=== PATIENT | male | born 1960 | race Caucasian/White ===

== ENCOUNTER 2018-04-20 19:14 | Emergency (ER) | payer OTHER ==
[~2018-04-20] VITALS: Ht 191.8 cm; Wt 134.3 kg
[~2018-04-20 19:14] MED LIST: ASPIRIN81 MG PO; CLINDAMYCIN HC150 MG PO; ECONAZOLE NITRA15 GM TOP; LANTUS100 UNITS/ SC; LEVOFLOXACIN500 MG PO; NOVOLOG100 UNIT/1 SC; Z.0.JANUVIA50 MG; Z.0.TRILIPIX135 MG; Z.0.ZOCOR20 MG; ZESTRIL10 MG PO; [UNRECOGNIZED DRUG - OTHER]
[2018-04-20 19:53] LABS: BASOPHILS % 0.3 % (0.0-1.0); EOSINOPHILS # (AUTO) 0.5 (0.0-0.4); HEMATOCRIT 45.3 % (38.2-49.6); HEMOGLOBIN 15.2 g/dL (14.0-18.0); LYMPHOCYTES % 21.4 % (18.0-39.1); MEAN CORPUSCULAR HEMOGLOBIN 30.8 pg (28-32); MEAN CORPUSCULAR HGB CONC 33.6 g/dL (31-35); MEAN CORPUSCULAR VOLUME 91.9 fL (81-99); MONOCYTES # (AUTO) 0.8 (0.2-0.8); MONOCYTES % 8.6 % (4.4-11.3); NEUTROPHILS % 64.3 % (38.7-80.0); PLATELET COUNT 345 x10e3/uL (140-360); RED BLOOD COUNT 4.93 x10e6/uL (4.3-5.7); RED CELL DISTRIBUTION WIDTH 11.9 % (11.7-14.4)
[2018-04-20 20:12] LABS: ALANINE AMINOTRANSFERASE 27 IU/L (0-55); ALBUMIN/GLOBULIN RATIO 1.3 (0.8-2.0); ALKALINE PHOSPHATASE 55 IU/L (40-150); BLOOD UREA NITROGEN 14 mg/dL (7-26); BUN/CREATININE RATIO 17 (6-25); CALCIUM 9.2 mg/dL (8.4-10.2); CARBON DIOXIDE 24 mmol/L (22-29); CHLORIDE 99 mmol/L (98-107); CREATININE, SERUM 0.82 mg/dL (0.72-1.25); EST GLOMERULAR FILTRATION RATE > 60 ML/MIN (60-); GLUCOSE 112 mg/dL (74-118); SODIUM 135 mmol/L (136-145)
--- NOTE | 2018-04-20 20:16 | Diagnostic Imaging Report ---
Radiographs of the right foot - 3 views Radiographs of the right ankle 3 views HISTORY: Pain. Swelling. Osteomyelitis COMPARISON: None available. FINDINGS: Bones: No acute displaced fracture. Osseous alignment is within normal limits. Joints: Scattered degenerative change. Posterior and inferior calcaneal bone spurs. No osseous erosion. Soft tissues: Soft tissue swelling. Calcification of the plantar fascia. IMPRESSION: Scattered degenerative change. Posterior and inferior calcaneal bone spurs. No osseous erosion. Signed by: Dr. Gustavo Westfall M.D. on 04/20/2018 8:12 PM
[2018-04-20] MEDS ORDERED: KEFLEX500 MG PO (21:36)
[2018-04-20] MEDS ORDERED: CLINDAMYCIN PHOS 900MG/ 50ML 50 ML IV STA (22:41)
[2018-04-20 22:45] LABS: CLARITY,URINE CLEAR (CLEAR); COLOR,URINE YELLOW (YELLOW); LEUKOCYTE ESTERASE ,URINE NEGATIVE (NEGATIVE); NITRITE,URINE NEGATIVE (NEGATIVE); PROTEIN,URINE DIPSTICK NEGATIVE (NEGATIVE)
[2018-04-20 22:46] LABS: BILIRUBIN,URINE NEGATIVE (NEGATIVE); KETONES,URINE NEGATIVE (NEGATIVE); URINE UROBILINOGEN 0.2 mg/dL (0.2 - 1)
[2018-04-20 22:56] LABS: BACTERIA,URINE RARE /HPF; EPITHELIAL CELLS,URINE RARE /LPF; RBC,URINE 0-5 /HPF (0-5); WBC,URINE (MAN) 0-5 /HPF (0-5)
[2018-04-20] MEDS ORDERED: KETOROLAC TROMETHAMINE 30 MG/ML VIAL IV STA (23:20)
[2018-04-20] MEDS ORDERED: SODIUM CHLORIDE 0.9% 1000ML 1,000 ML IV ONE (23:30)
[2018-04-21 01:16] VITALS: BP 123/83
== END 2018-04-21 02:59 | disposition home or self-care (01) ==
LOC: ER 19:14
DX: L03.115 Cellulitis of right lower limb (principal)
CPT/HCPCS: 36415; 73610; 73630; 80053; 81001; 85025; 87086; 93971; 99284; J1885; J7030

== ENCOUNTER 2018-04-21 16:10 | Inpatient (IN) | payer OTHER ==
[~2018-04-21] VITALS: Ht 190.5 cm; Wt 131.7 kg
[2018-04-21] VITALS (12 sets, daily range): BP systolic 124–140; BP diastolic 74–92
[~2018-04-21 16:10] MED LIST changes: +KEFLEX500 MG PO
--- OUTSIDE RECORDS SUMMARY | 2018-04-21 16:14 | XMS REPORT ---
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 Allergies, Adverse Reactions, Alerts This patient has no known allergies or adverse reactions. Medications This patient has no known medications. Results Test Description Test Time Test Comments Text Results Atomic Results Result Comments FOOT RIGHT COMPLETE 2018-04-20 20:10:00 [facility] [address] [address] Patient Name: ALIREZA ZHANG MR #: [id number] : 1960 Age/Sex: 58/M Req #: [id number] [facility] Physician: Ordered by: LARRY MCCORMACK MD Report #: [id number] Location: ER Room/Bed: Procedure: [id number] DX/FOOT RIGHT COMPLETE Exam Date: 04/20/18 Exam Time: 1999 REPORT STATUS: Signed Radiographs of the right foot - 3 views Radiograph s of the right ankle 3 views HISTORY: Pain. Swelling. Osteomyelitis COMPARISON: None available. FINDINGS: Bones: No acute displaced fracture. Osseous alignment is within normal limits. Joints: Scattered degenerative change. Posterior and inferior calcaneal bone spurs. No osseous erosion. Soft tissues: Soft tissue swelling. Calcification of the plantar fascia. IMPRESSION: Scattered degenerative change. Posterior and inferior calcaneal bone spurs. No osseous erosion. Signed by: Dr. Gustavo Westfall M.D. on 04/20/2018 8:12 PM Dictated By: GUSTAVO WESTFALL MD, MD 11 Transcribed By: JOYCE on 04/20/182011 COPY TO: LARRY MCCORMACK MD ANKLE 3 + VIEWS RIGHT 2018-04-20 20:10:00 [address] [address] Patient Name: ALIREZA ZHANG MR #: [id number] : 1960 Age/Sex: 58/M Req #: [id number] Adm Physician: Ordered by: LARRY MCCORMACK MD Report #: [id number] Location: ER Room/Bed: Procedure: [id number] DX/ANKLE 3 + VIEWS RIGHT Exam Date: 04/20/18 Exam Time: 1999 REPORT STATUS: Signed Radiographs of the right foot - 3 views Radiograph s of the right ankle 3 views HISTORY: Pain. Swelling. Osteomyelitis COMPARISON: None available. FINDINGS: Bones: No acute displaced fracture. Osseous alignment is within normal limits. Joints: Scattered degenerative change. Posterior and inferior calcaneal bone spurs. No osseous erosion. Soft tissues: Soft tissue swelling. Calcification of the plantar fascia.
[2018-04-21] MEDS: HYDROCODONE/APAP 5MG-325MG TAB PO PRN (17:00)
[2018-04-21] MEDS: SODIUM CHLORIDE 0.9% 1000ML 1,000 ML IV SCH (17:21)
[2018-04-21] MEDS: PIPER-TAZ 3.375 GM 50 ML IV SCH (17:27)
[2018-04-21] MEDS: VANCOMYCIN 1GM/NS 250 ML 250 ML IV SCH (17:27)
[2018-04-21 17:54] LABS: BASOPHILS % 0.4 % (0.0-1.0); EOSINOPHILS # (AUTO) 0.4 (0.0-0.4); EOSINOPHILS % 4.8 % (0.0-6.0); HEMATOCRIT 42.1 % (38.2-49.6); HEMOGLOBIN 14.3 g/dL (14.0-18.0); LYMPHOCYTES # (AUTO) 1.6 (1.0-3.2); LYMPHOCYTES % 20.2 % (18.0-39.1); MEAN CORPUSCULAR VOLUME 91.1 fL (81-99); MONOCYTES # (AUTO) 0.7 (0.2-0.8); MONOCYTES % 8.5 % (4.4-11.3); NEUTROPHILS % 65.4 % (38.7-80.0); PLATELET COUNT 324 x10e3/uL (140-360); RED BLOOD COUNT 4.62 x10e6/uL (4.3-5.7); RED CELL DISTRIBUTION WIDTH 11.9 % (11.7-14.4)
[2018-04-21 18:12] LABS: ALANINE AMINOTRANSFERASE 25 IU/L (0-55); ALBUMIN 3.6 g/dL (3.5-5.0); ALBUMIN/GLOBULIN RATIO 1.2 (0.8-2.0); ALKALINE PHOSPHATASE 49 IU/L (40-150); ANION GAP 14.8 mmol/L (8-16); BLOOD UREA NITROGEN 13 mg/dL (7-26); BUN/CREATININE RATIO 16 (6-25); CALCIUM 8.7 mg/dL (8.4-10.2); CARBON DIOXIDE 23 mmol/L (22-29); CHLORIDE 100 mmol/L (98-107); CREATININE, SERUM 0.79 mg/dL (0.72-1.25); EST GLOMERULAR FILTRATION RATE > 60 ML/MIN (60-); GLUCOSE 138 mg/dL (74-118); POTASSIUM 3.8 mmol/L (3.5-5.1); SODIUM 134 mmol/L (136-145)
[2018-04-21 18:31] LABS: ERYTHROCYTE SEDIMENTATION RATE 13 mm/hr (0-13)
[2018-04-22] MEDS: PIPER-TAZ 3.375 GM 50 ML IV SCH ×4 (00:58→18:00)
[2018-04-22] MEDS: VANCOMYCIN 1GM/NS 250 ML 250 ML IV SCH ×2 (04:50→16:42)
[2018-04-22] MEDS: ENOXAPARIN SOD INJ 40 MG/0.4 ML SYR SC SCH (06:08)
[2018-04-22 07:00] VITALS: BP 120/76
[2018-04-22] MEDS: INSULIN LISPRO 100 UNIT/1 ML 3ML VIAL SQ SCH ×3 (08:18→16:41)
[2018-04-22] MEDS: LISINOPRIL 10 MG TAB PO SCH (08:19)
[2018-04-22] MEDS: ECONAZOLE NITRATE 1% CRM 15 GM TUBE TP SCH ×2 (08:19→17:06)
[2018-04-22] MEDS: ASPIRIN 81 MG CHEW TAB PO SCH (08:19)
[2018-04-22] MEDS: FLUCONAZOLE 100 MG TAB PO SCH (08:19)
[2018-04-22 09:00] VITALS: BP 138/78
[2018-04-22 11:00] VITALS: BP 142/90
[2018-04-22] MEDS: SODIUM CHLORIDE 0.9% 1000ML 1,000 ML IV SCH (12:30)
--- NOTE | 2018-04-22 14:08 | Consultation ---
DATE OF CONSULTATION: INFECTIOUS DISEASE CONSULTATION REASON FOR CONSULTATION: Cellulitis of the right leg. HISTORY OF PRESENT ILLNESS: This is a patient who is a very pleasant 58-year-old white male with history of diabetes mellitus, hypertension, hypercholesterolemia, obesity, history of infection back in 2004 or so in the right leg. Comes in with redness and swelling of his leg. The patient is thought to have problems on Wednesday. There was some pain. He went to see his physician, who gave him oral antibiotic, but the redness and the swelling continued to get worse. The pain was found to get worse. He went to the emergency room on Wednesday. In the emergency room they told him that he needed to be admitted, but the hospital was full and he did not want to stay in the emergency room; so, he went to see his physician on . By then it was a lot worse; so, the physician told him he needed to come into the hospital. So, patient is being admitted. The patient is currently lying in bed comfortably. PAST MEDICAL HISTORY: As above. PAST SURGICAL HISTORY: As above. ALLERGIES: NKA. SOCIAL HISTORY: There is no smoking, drug abuse, alcohol abuse. FAMILY HISTORY: Otherwise unremarkable. REVIEW OF SYSTEMS HEENT: Negative. NECK: Negative. PULMONARY: Negative. CARDIAC: Negative. : Negative. JOINTS: Negative. ALL: Within normal limits at the present time. He denies any complaints. PHYSICAL EXAMINATION GENERAL: He is currently alert, oriented, does not seem to be in acute distress. VITAL SIGNS: Stable. Currently afebrile. HEENT: He does not appear icteric. NECK: Supple. CHEST: Clear. HEART: S1 and S2. No S3 or S4, no murmur. ABDOMEN: Soft. Bowel sounds present. No tenderness. No hepatosplenomegaly. EXTREMITIES: The right leg: There is erythema. There is edema. There is a small bullous lesion noted on the medial aspect. LAB: White count 7.68, hemoglobin of 14.3. Sodium 134, potassium 3.8, creatinine 0.79. IMPRESSION: Cellulitis of the leg in a patient who is obese, failed oral antibiotic. Agree with vancomycin, agree with Zosyn. Await the blood cultures. Recheck CBC, recheck chemistry panel. Will see how he is going to do in the next couple of days. Discussed with the patient at length. Job#: [id number] EV
[2018-04-22 15:00] VITALS: BP 131/76
[2018-04-22] MEDS: HYDROCODONE/APAP 5MG-325MG TAB PO PRN (17:48)
[2018-04-22] MEDS ORDERED: ONDANSETRON HCL INJ 2 MG/ML VIAL IV PRN (19:45)
[2018-04-22] MEDS ORDERED: DOCUSATE SODIUM 100 MG CAP PO PRN (19:45)
[2018-04-22 20:00] VITALS: BP 147/97
[2018-04-22] MEDS: INSULIN DETEMIR 100 UNIT/ML PEN SQ SCH (21:00)
[2018-04-23] VITALS (8 sets, daily range): BP systolic 122–158; BP diastolic 55–99
[2018-04-23] MEDS: PIPER-TAZ 3.375 GM 50 ML IV SCH ×4 (00:19→18:08)
[2018-04-23] MEDS: VANCOMYCIN 1GM/NS 250 ML 250 ML IV SCH ×2 (04:45→16:45)
[2018-04-23] MEDS: ENOXAPARIN SOD INJ 40 MG/0.4 ML SYR SC SCH (06:28)
[2018-04-23] MEDS: INSULIN LISPRO 100 UNIT/1 ML 3ML VIAL SQ SCH ×3 (08:00→16:45)
[2018-04-23] MEDS: SODIUM CHLORIDE 0.9% 1000ML 1,000 ML IV SCH (08:45)
[2018-04-23] MEDS: FLUCONAZOLE 100 MG TAB PO SCH (09:30)
[2018-04-23] MEDS: LISINOPRIL 10 MG TAB PO SCH (09:30)
[2018-04-23] MEDS: ASPIRIN 81 MG CHEW TAB PO SCH (09:30)
[2018-04-23] MEDS: ECONAZOLE NITRATE 1% CRM 15 GM TUBE TP SCH ×2 (10:05→17:04)
[2018-04-23] MEDS ORDERED: ACETAMINOPHEN 325 MG TAB PO PRN (13:45)
[2018-04-23] MEDS: INSULIN DETEMIR 100 UNIT/ML PEN SQ SCH (20:28)
[2018-04-24] VITALS (8 sets, daily range): BP systolic 133–154; BP diastolic 74–89
[2018-04-24] MEDS: PIPER-TAZ 3.375 GM 50 ML IV SCH ×5 (00:07→23:31)
[2018-04-24] MEDS: SODIUM CHLORIDE 0.9% 1000ML 1,000 ML IV SCH ×2 (04:51→23:31)
[2018-04-24] MEDS: VANCOMYCIN 1GM/NS 250 ML 250 ML IV SCH ×2 (04:51→17:00)
[2018-04-24] MEDS: ENOXAPARIN SOD INJ 40 MG/0.4 ML SYR SC SCH (06:43)
[2018-04-24 07:00] LABS: BASOPHILS % 0.5 % (0.0-1.0); EOSINOPHILS # (AUTO) 0.4 (0.0-0.4); EOSINOPHILS % 6.5 % (0.0-6.0); HEMATOCRIT 41.9 % (38.2-49.6); LYMPHOCYTES # (AUTO) 2.1 (1.0-3.2); LYMPHOCYTES % 36.6 % (18.0-39.1); MEAN CORPUSCULAR HEMOGLOBIN 30.5 pg (28-32); MEAN CORPUSCULAR HGB CONC 33.4 g/dL (31-35); MEAN CORPUSCULAR VOLUME 91.3 fL (81-99); MONOCYTES # (AUTO) 0.5 (0.2-0.8); MONOCYTES % 8.9 % (4.4-11.3); NEUTROPHILS # (AUTO) 2.7 (2.1-6.9); NEUTROPHILS % 46.6 % (38.7-80.0); PLATELET COUNT 353 x10e3/uL (140-360); RED BLOOD COUNT 4.59 x10e6/uL (4.3-5.7); RED CELL DISTRIBUTION WIDTH 11.9 % (11.7-14.4)
[2018-04-24] MEDS: INSULIN LISPRO 100 UNIT/1 ML 3ML VIAL SQ SCH ×3 (07:30→17:05)
[2018-04-24] MEDS: ASPIRIN 81 MG CHEW TAB PO SCH (08:11)
[2018-04-24] MEDS: LISINOPRIL 10 MG TAB PO SCH (08:11)
[2018-04-24] MEDS: FLUCONAZOLE 100 MG TAB PO SCH (08:11)
[2018-04-24] MEDS: ECONAZOLE NITRATE 1% CRM 15 GM TUBE TP SCH ×2 (08:12→17:43)
[2018-04-24] MEDS: INSULIN DETEMIR 100 UNIT/ML PEN SQ SCH (21:14)
[2018-04-25] VITALS (8 sets, daily range): BP systolic 128–178; BP diastolic 73–95
[2018-04-25] MEDS: VANCOMYCIN 1GM/NS 250 ML 250 ML IV SCH (04:17)
[2018-04-25] MEDS: ENOXAPARIN SOD INJ 40 MG/0.4 ML SYR SC SCH (05:09)
[2018-04-25] MEDS: PIPER-TAZ 3.375 GM 50 ML IV SCH ×3 (06:25→18:29)
[2018-04-25] MEDS: INSULIN LISPRO 100 UNIT/1 ML 3ML VIAL SQ SCH ×3 (07:30→18:29)
[2018-04-25] MEDS: ASPIRIN 81 MG CHEW TAB PO SCH (09:48)
[2018-04-25] MEDS: ECONAZOLE NITRATE 1% CRM 15 GM TUBE TP SCH ×2 (09:48→18:29)
[2018-04-25] MEDS: LISINOPRIL 10 MG TAB PO SCH (09:48)
[2018-04-25] MEDS: FLUCONAZOLE 100 MG TAB PO SCH (09:48)
[2018-04-25] MEDS: VANCOMYCIN HCL 1.5 GM in SODIUM CHLORIDE 0.9% 250ML 300 ML IV SCH (18:29)
[2018-04-25 19:48] LABS: ANION GAP 15.7 mmol/L (8-16); BLOOD UREA NITROGEN 16 mg/dL (7-26); BUN/CREATININE RATIO 18 (6-25); CARBON DIOXIDE 22 mmol/L (22-29); CHLORIDE 103 mmol/L (98-107); CREATININE, SERUM 0.91 mg/dL (0.72-1.25); EST GLOMERULAR FILTRATION RATE > 60 ML/MIN (60-); GLUCOSE 145 mg/dL (74-118); POTASSIUM 3.7 mmol/L (3.5-5.1); SODIUM 137 mmol/L (136-145)
[2018-04-25 20:34] LABS: INR 0.86; PROTHROMBIN TIME 12.5 seconds (11.9-14.5)
[2018-04-25 20:35] LABS: PARTIAL THROMBOPLASTIN TIME 27.5 seconds (23.8-35.5)
[2018-04-25] MEDS: SODIUM CHLORIDE 0.9% 1000ML 1,000 ML IV SCH (20:45)
[2018-04-25] MEDS: INSULIN DETEMIR 100 UNIT/ML PEN SQ SCH (21:00)
--- NOTE | 2018-04-25 22:41 | Diagnostic Imaging Report ---
EXAMINATION: CHEST XRAY LINE PLACEMENT INDICATION: PICC line placement COMPARISON: None FINDINGS: AP view TUBES and LINES: Right upper extremity PICC tip overlies the SVC. LUNGS: Lungs are moderately inflated. Lungs are clear. There is no evidence of pneumonia or pulmonary edema. PLEURA: No pleural effusion or pneumothorax. HEART AND MEDIASTINUM: The cardiomediastinal silhouette is unremarkable. BONES AND SOFT TISSUES: No acute osseous lesion. Soft tissues are unremarkable. UPPER ABDOMEN: No free air under the diaphragm. IMPRESSION: Right upper extremity PICC tip overlies the SVC. No acute thoracic abnormality. Signed by: DR. Yordy Kay MD on 04/25/2018 10:37 PM
[2018-04-26 00:45] VITALS: BP 164/92
[2018-04-26] MEDS: PIPER-TAZ 3.375 GM 50 ML IV SCH ×3 (00:47→12:40)
[2018-04-26] MEDS: ENOXAPARIN SOD INJ 40 MG/0.4 ML SYR SC SCH (05:35)
[2018-04-26 06:20] VITALS: BP 145/92
[2018-04-26 08:35] VITALS: BP 137/86
[2018-04-26] MEDS: LISINOPRIL 10 MG TAB PO SCH (08:57)
[2018-04-26] MEDS: FLUCONAZOLE 100 MG TAB PO SCH (08:57)
[2018-04-26] MEDS: ASPIRIN 81 MG CHEW TAB PO SCH (08:57)
[2018-04-26] MEDS: VANCOMYCIN HCL 1.5 GM in SODIUM CHLORIDE 0.9% 250ML 300 ML IV SCH ×2 (09:00→17:04)
[2018-04-26] MEDS ORDERED: MUPIROCIN 2% OINT 22 GM TUBE TOP SCH (09:00)
[2018-04-26] MEDS: INSULIN LISPRO 100 UNIT/1 ML 3ML VIAL SQ SCH ×3 (09:00→17:07)
[2018-04-26] MEDS: ECONAZOLE NITRATE 1% CRM 15 GM TUBE TP SCH ×2 (10:00→17:05)
[2018-04-26 11:45] VITALS: BP 137/86
[2018-04-26 12:37] VITALS: BP 132/79
[2018-04-26 16:39] VITALS: BP 127/71
--- NOTE | 2018-05-28 01:02 | Discharge Summary ---
DISCHARGE DIAGNOSES 1. Right lower extremity cellulitis. 2. Type 2 diabetes mellitus with acceptable control. 3. Hypertension, controlled. HISTORY OF PRESENT ILLNESS: Mr. Dunaway is a 58-year-old gentleman patient of Dr. Earl who has had a chronic fungal infection of both feet and onychomycosis. He was treated for cellulitis in 2014. Now, he returns with similar symptoms for the last 10 days having failed outpatient antibiotic therapy. A venous Doppler was taken a few days prior to admission and was negative for DVT. He was admitted to the hospital. He was started on a combination of Zosyn and vancomycin and a consult was requested with the ID proposal consultant Dr. Rodriguez. Initially, at the time of admission, the patient had erythema around the distal right lower extremity. This unfortunately progressed to a shallow bulla that later on opened up and therefore needed local wound care. The fluid sent from the draining wound was negative for any growth. An arterial Doppler was performed to rule out any possibility of peripheral vascular disease. This was negative. A PICC line was inserted and the patient was then arranged to go home with home IV antibiotics and wound care through Dr. Rodriguez's office. NEGRO GILMORE MD Job#: [id number] [facility]
== END 2018-04-26 19:40 | disposition home or self-care (01) | DRG 603 ==
LOC: IMCU 16:10 → MED/SURG2 04-22 21:11
PROVIDERS: ADMIT Internal Medicine; ATTEND Internal Medicine
PROC: 02HV33Z Insertion of Infusion Device into Superior Vena Cava, Percutaneous Approach (ICD-10-PCS; principal; 2018-04-25)
DX: L03.115 Cellulitis of right lower limb (principal); E66.9 Obesity, unspecified; Z68.36 Body mass index [BMI] 36.0-36.9, adult; B35.1 Tinea unguium; B95.8 Unspecified staphylococcus as the cause of diseases classified elsewhere
CPT/HCPCS: 36415; 36569; 71045; 80048; 80053; 80202; 82948; 85025; 85610; 85651; 85730; 87071; 87186; 87205; 93926; 96361; J1650; J2405; J2543; J3370; J7030; J7050

== ENCOUNTER 2022-08-14 11:11 | Emergency (ER) | payer OTHER ==
[~2022-08-14] VITALS: Ht 193 cm; Wt 124.3 kg
[2022-08-14] MEDS ORDERED: HYDROCODONE/APAP 7.5MG-325MG 1 EA TAB PO STA (11:30)
[2022-08-14] MEDS ORDERED: ULTRAM 50MG50 MG PO (12:56)
== END 2022-08-14 13:16 | disposition home or self-care (01) ==
LOC: ER 11:18
DX: M25.561 Pain in right knee (principal); E11.9 Type 2 diabetes mellitus without complications; I10 Essential (primary) hypertension
CPT/HCPCS: 99284

== ENCOUNTER 2022-08-30 02:32 | Inpatient (IN) | payer OTHER ==
[2022-08-30] VITALS (8 sets, daily range): BP systolic 113–129; BP diastolic 69–77
[~2022-08-30] VITALS: Ht 198.1 cm; Wt 124.3 kg
[~2022-08-30 02:32] MED LIST changes: +ULTRAM 50MG50 MG PO
[2022-08-30] MEDS ORDERED: ACETAMINOPHEN 325 MG TAB PO ONE (02:45)
[2022-08-30] MEDS ORDERED: SODIUM CHLORIDE 0.9% 1000ML 1,000 ML IV ONE (02:45)
[2022-08-30 03:03] LABS: BASOPHILS % 0.4 % (0.0-1.0); EOSINOPHILS # (AUTO) 0.5 (0.0-0.4); EOSINOPHILS % 4.4 % (0.0-6.0); HEMATOCRIT 46.7 % (38.2-49.6); HEMOGLOBIN 15.5 g/dL (14.0-18.0); LYMPHOCYTES # (AUTO) 1.8 (1.0-3.2); LYMPHOCYTES % 16.7 % (18.0-39.1); MEAN CORPUSCULAR HEMOGLOBIN 31.1 pg (28-32); MEAN CORPUSCULAR HGB CONC 33.2 g/dL (31-35); MEAN CORPUSCULAR VOLUME 93.6 fL (81-99); MONOCYTES # (AUTO) 0.8 (0.2-0.8); NEUTROPHILS # (AUTO) 7.3 (2.1-6.9); NEUTROPHILS % 70.1 % (38.7-80.0); PLATELET COUNT 282 x10e3/uL (140-360); RED BLOOD COUNT 4.99 x10e6/uL (4.3-5.7); RED CELL DISTRIBUTION WIDTH 12.1 % (11.7-14.4)
[2022-08-30] MEDS ORDERED: PIPERACILLIN/TAZOBACTAM 3.375 GM VIAL ONE (03:11)
[2022-08-30 03:20] LABS: ALANINE AMINOTRANSFERASE 26 IU/L (0-55); ALBUMIN 4.1 g/dL (3.5-5.0); ALBUMIN/GLOBULIN RATIO 1.2 (0.8-2.0); ALKALINE PHOSPHATASE 51 IU/L (40-150); ANION GAP 16.8 mmol/L (8-16); BLOOD UREA NITROGEN 16 mg/dL (7-26); BUN/CREATININE RATIO 18 (6-25); CALCIUM 9.3 mg/dL (8.4-10.2); CARBON DIOXIDE 24 mmol/L (22-29); CHLORIDE 102 mmol/L (98-107); CREATINE KINASE 121 IU/L (30-200); CREATININE, SERUM 0.91 mg/dL (0.72-1.25); GLUCOSE 153 mg/dL (74-118); POTASSIUM 3.8 mmol/L (3.5-5.1); SODIUM 139 mmol/L (136-145)
[2022-08-30] MEDS ORDERED: DEXTROSE 50% SYRINGE 50 ML IV PRN (03:45)
[2022-08-30] MEDS ORDERED: ONDANSETRON HCL INJ 2MG/ML 2ML 2 MG/ML VIAL IV PRN (03:45)
[2022-08-30] MEDS ORDERED: ACETAMINOPHEN 325 MG TAB PO PRN (03:45)
[2022-08-30] MEDS: SODIUM CHLORIDE 0.9% 1000ML 1,000 ML IV SCH ×3 (04:30→20:07)
[2022-08-30] MEDS: Vancomycin IV 1 GM in SODIUM CHLORIDE 0.9% 250ML 250 ML IV SCH ×2 (04:30→14:43)
[2022-08-30] MEDS: INSULIN REGULAR, HUMAN 100 UNIT/1 ML SQ SCH ×4 (08:00→21:00)
[2022-08-30] MEDS ORDERED: METFORMIN HCL500 M1 PO (10:12)
[2022-08-30] MEDS ORDERED: LISINOPRIL10 MG PO (10:12)
[2022-08-30] MEDS ORDERED: JARDIANCE10 MG PO (10:12)
[2022-08-30] MEDS ORDERED: JANUVIA100 MG PO (10:12)
[2022-08-30] MEDS ORDERED: DOXYCYCLINE HY100 MG PO (10:12)
[2022-08-30] MEDS ORDERED: SIMVASTATIN40 MG PO (10:12)
[2022-08-30] MEDS: Morphine 4mg INJECTION 4 MG/ML INJ IV PRN ×2 (12:15→20:06)
[2022-08-31] VITALS (7 sets, daily range): BP systolic 117–133; BP diastolic 74–82
[2022-08-31] MEDS: Vancomycin IV 1 GM in SODIUM CHLORIDE 0.9% 250ML 250 ML IV SCH ×2 (03:08→15:57)
[2022-08-31] MEDS: SODIUM CHLORIDE 0.9% 1000ML 1,000 ML IV SCH ×2 (03:09→13:16)
[2022-08-31 06:10] LABS: BASOPHILS % 0.5 % (0.0-1.0); EOSINOPHILS # (AUTO) 0.4 (0.0-0.4); EOSINOPHILS % 5.4 % (0.0-6.0); HEMOGLOBIN 13.8 g/dL (14.0-18.0); LYMPHOCYTES # (AUTO) 1.6 (1.0-3.2); LYMPHOCYTES % 21.6 % (18.0-39.1); MEAN CORPUSCULAR HEMOGLOBIN 34.3 pg (28-32); MEAN CORPUSCULAR HGB CONC 35.4 g/dL (31-35); MONOCYTES # (AUTO) 0.7 (0.2-0.8); MONOCYTES % 9.1 % (4.4-11.3); NEUTROPHILS # (AUTO) 4.7 (2.1-6.9); NEUTROPHILS % 62.9 % (38.7-80.0); PLATELET COUNT 220 x10e3/uL (140-360); RED BLOOD COUNT 4.02 x10e6/uL (4.3-5.7); RED CELL DISTRIBUTION WIDTH 13.7 % (11.7-14.4)
[2022-08-31 06:34] LABS: ALBUMIN 3.4 g/dL (3.5-5.0); ALBUMIN/GLOBULIN RATIO 1.2 (0.8-2.0); ANION GAP 10.7 mmol/L (8-16); CALCIUM 8.6 mg/dL (8.4-10.2); CREATININE, SERUM 0.73 mg/dL (0.72-1.25); POTASSIUM 3.7 mmol/L (3.5-5.1)
[2022-08-31] MEDS: INSULIN REGULAR, HUMAN 100 UNIT/1 ML SQ SCH ×4 (07:30→20:10)
[2022-08-31] MEDS: Morphine 4mg INJECTION 4 MG/ML INJ IV PRN ×2 (13:21→20:12)
[2022-09-01] VITALS: BP 120/72
[2022-09-01] MEDS: Vancomycin IV 1 GM in SODIUM CHLORIDE 0.9% 250ML 250 ML IV SCH (02:40)
[2022-09-01] MEDS: Morphine 4mg INJECTION 4 MG/ML INJ IV PRN (03:15)
[2022-09-01 04:00] VITALS: BP 128/68
[2022-09-01 05:40] LABS: BASOPHILS % 0.7 % (0.0-1.0); EOSINOPHILS # (AUTO) 0.3 (0.0-0.4); EOSINOPHILS % 5.8 % (0.0-6.0); HEMATOCRIT 39.5 % (38.2-49.6); HEMOGLOBIN 13.7 g/dL (14.0-18.0); LYMPHOCYTES # (AUTO) 1.7 (1.0-3.2); LYMPHOCYTES % 29.4 % (18.0-39.1); MEAN CORPUSCULAR HEMOGLOBIN 33.2 pg (28-32); MEAN CORPUSCULAR HGB CONC 34.7 g/dL (31-35); MEAN CORPUSCULAR VOLUME 95.6 fL (81-99); MONOCYTES # (AUTO) 0.6 (0.2-0.8); MONOCYTES % 9.4 % (4.4-11.3); NEUTROPHILS # (AUTO) 3.2 (2.1-6.9); NEUTROPHILS % 53.8 % (38.7-80.0); PLATELET COUNT 237 x10e3/uL (140-360); RED BLOOD COUNT 4.13 x10e6/uL (4.3-5.7); RED CELL DISTRIBUTION WIDTH 12.5 % (11.7-14.4)
[2022-09-01 06:11] LABS: ANION GAP 12.8 mmol/L (8-16); CALCIUM 8.4 mg/dL (8.4-10.2); CREATININE, SERUM 0.68 mg/dL (0.72-1.25); POTASSIUM 3.8 mmol/L (3.5-5.1)
[2022-09-01] MEDS: INSULIN REGULAR, HUMAN 100 UNIT/1 ML SQ SCH ×2 (07:30→11:30)
[2022-09-01 08:24] VITALS: BP 122/87
[2022-09-01 08:50] VITALS: BP 122/87
[2022-09-01 12:02] VITALS: BP 124/79
[2022-09-01] MEDS ORDERED: DAPTOMYCIN500 MG IV (13:59)
[2022-09-01] MEDS ORDERED: ACETAMINOPHEN325 M1 PO (13:59)
[2022-09-01] MEDS ORDERED: CEFTRIAXON2 GM/50 ML IVP (13:59)
[2022-09-01] MEDS ORDERED: DAPTOMYCIN 500mg 10ML 500 MG in SODIUM CHLORIDE 0.9% 100 ML IV SCH (14:00)
[2022-09-01] MEDS ORDERED: ONDANSETRON HCL 4 MG ORAL DISINTEGRATING TAB PO PRN (14:45)
[2022-09-01] MEDS ORDERED: CEFTRIAXONE 2 GM in SODIUM CHLORIDE 0.9% 100 ML IV SCH (15:00)
== END 2022-09-01 17:45 | disposition home or self-care (01) | DRG 638 ==
LOC: ER 02:40 → ERHOLD 03:43 → MED/SURG3 06:52
PROVIDERS: ADMIT Internal Medicine; ATTEND Internal Medicine
PROC: 02HV33Z Insertion of Infusion Device into Superior Vena Cava, Percutaneous Approach (ICD-10-PCS; principal; 2022-09-01)
DX: E11.628 Type 2 diabetes mellitus with other skin complications (principal); L03.115 Cellulitis of right lower limb; I10 Essential (primary) hypertension; E78.5 Hyperlipidemia, unspecified; E11.69 Type 2 diabetes mellitus with other specified complication; Z79.4 Long term (current) use of insulin; E11.65 Type 2 diabetes mellitus with hyperglycemia; M17.11 Unilateral primary osteoarthritis, right knee; G47.33 Obstructive sleep apnea (adult) (pediatric); Z96.651 Presence of right artificial knee joint; Z79.899 Other long term (current) drug therapy; Z20.822 Contact with and (suspected) exposure to COVID-19
CPT/HCPCS: 36415; 36569; 71045; 80048; 80053; 80202; 82550; 82553; 82948; 83605; 84484; 85025; 87040; 93005; 99284; J0692; J0696; J2270; J2543; J7030; J7050